=== PATIENT | female | born 1985 | race Caucasian/White ===

== ENCOUNTER 2021-01-08 17:40 | Emergency (ER) | payer MEDICAID | END 2021-01-08 21:08 | disposition left against medical advice (07) | LOC: ER 17:43 | DX: M54.9 Dorsalgia, unspecified (principal); Z53.21 Procedure and treatment not carried out due to patient leaving prior to being seen by health care provider ==

== ENCOUNTER 2023-04-01 15:25 | Inpatient (IN) | payer MEDICAID ==
[~2023-04-01] VITALS: Ht 157.5 cm; Wt 120.0 kg
--- NOTE | 2023-04-01 15:42 | NUR ---
PTS BROTHER LALO STATES HE WILL STAY WITH PT UNTIL SHE CAN BE ROOMED
[2023-04-01 16:27] LABS: BASOPHILS # (AUTO) 0.1 X10'3 (0-0.2); BASOPHILS % (AUTO) 0.7 % (0-1); EOSINOPHILS # (AUTO) 0.1 X10'3 (0-0.9); HEMATOCRIT 38.6 % (35.0-45.0); HEMOGLOBIN 12.7 g/dl (12.0-16.0); LYMPHOCYTES # (AUTO) 2.1 X10'3 (1.1-4.8); LYMPHOCYTES % (AUTO) 21.3 % (21-51); MEAN CORPUSCULAR HEMOGLOBIN 28.6 PG (27.0-31.0); MEAN CORPUSCULAR HGB CONC 32.9 g/dL (33.0-36.5); MEAN CORPUSCULAR VOLUME 87.1 FL (78-98); MEAN PLATELET VOLUME 8.2 FL (7.4-10.4); MONOCYTES # (AUTO) 0.3 X10'3 (0-0.9); MONOCYTES % (AUTO) 3.4 % (2-12); NEUTROPHILS # (AUTO) 7.1 X10'3 (1.8-7.7); NEUTROPHILS % (AUTO) 73.6 % (42-75); PLATELET COUNT 223 X10'3 (140-440); RED BLOOD COUNT 4.43 X10'6 (4.20-5.60); RED CELL DISTRIBUTION WIDTH 14.3 % (11.5-14.5); WHITE BLOOD COUNT 9.7 X10'3 (4.5-11.0)
[2023-04-01 16:33] LABS: BILIRUBIN,URINE NEGATIVE (Neg); CLARITY,URINE SLIGHTLY CLOUDY (Clear); COLOR,URINE YELLOW (Yellow); GLUCOSE, URINE NEGATIVE (Neg); KETONES,URINE NEGATIVE (Neg); LEUKOCYTE ESTERASE ,URINE NEGATIVE (Neg); NITRITES, URINE NEGATIVE (Neg); OCCULT BLOOD,URINE NEGATIVE (Neg); PROTEIN,URINE NEGATIVE (Neg)
[2023-04-01 16:38] LABS: UA COLLECTION TYPE CLN CATCH MIDSTREAM
[2023-04-01 16:39] LABS: MUCUS STRANDS MANY /LPF (Neg); SQUAMOUS EPITHELIAL CELL,UR MANY /LPF (FEW)
[2023-04-01 16:40] LABS: BACTERIA,URINE FEW /HPF (Neg); RBC,URINE 0-2 /HPF (0-2); URINE HCG NEGATIVE (NEG)
[2023-04-01 16:41] LABS: AMORPHOUS URATES 1+
[2023-04-01 16:43] LABS: ALANINE AMINOTRANSFERASE 16 U/L (12-78); ALBUMIN 3.2 G/DL (3.4-5.0); ALBUMIN/GLOBULIN RATIO 0.7 (1.1-1.5); ALKALINE PHOSPHATASE 88 IU/L (46-116); ANION GAP 5 (8-16); ASPARTATE AMINO TRANSFERASE 13 U/L (10-37); BILIRUBIN,TOTAL 0.5 MG/DL (0.1-1.0); BLOOD UREA NITROGEN 12 MG/DL (7-18); BUN/CREATININE RATIO 15.8 (10.0-20.0); CALCIUM 8.8 MG/DL (8.5-10.1); CHLORIDE 104 MMOL/L (99-107); CREATININE 0.76 MG/DL (0.40-0.90); GLUCOSE 90 MG/DL (70-104); POTASSIUM 3.5 MMOL/L (3.5-5.1); SODIUM 138 MMOL/L (135-145); TOTAL CARBON DIOXIDE 28.9 MMOL/L (24-32); TOTAL PROTEIN 7.8 G/DL (6.4-8.2); eCRCL 81 ML/MIN; eGFR 86 ML/MIN
[2023-04-01 16:47] LABS: URINE AMPHETAMINE SCREEN NEGATIVE (Neg); URINE BARBITUATE SCREEN NEGATIVE (Neg); URINE BENZODIAZEPINES SCREEN NEGATIVE (Neg); URINE CANNABINOID SCREEN NEGATIVE (Neg); URINE COCAINE SCREEN NEGATIVE (Neg); URINE METHADONE SCREEN NEGATIVE (Neg); URINE OPIATE SCREEN NEGATIVE (Neg); URINE PHENCYCLIDINE SCREEN NEGATIVE (Neg)
--- NOTE | 2023-04-01 16:50 | NUR ---
Patient admitted to ED overflow at this time. Tearful and able to answer questions appropriately. Able to make needs known. Will continue to monitor. Addendum: 04/01/23 at 1830 by RUDOLPH Joyce MARTIENZ, KODI, PRESTON or LIUDMILA.
[2023-04-01 16:52] LABS: ETHANOL < 10 MG/DL (<10); THYROID STIMULATING HORMONE 2.28 ulU/ml (0.34-4.50)
--- NOTE | 2023-04-01 17:37 | NUR ---
Per Mother [phone]. Patient related located with kids. Crying constantly and depressed. HX Bipolar, ADHD. Has been on Depakote and [place], but no longer. Latuda and does not know dose. Was given something for sleep but made her too sleepy. Patient believes her mother is trying to take away her kids. Mother taking care of patient's 2 children and has Temporary custody. 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
[2023-04-01] MEDS ORDERED: amLODIPine 5mg tablet PO ONE (18:05)
--- NOTE | 2023-04-01 18:42 | NUR ---
Transferred care to Tianna WRIGHT.
--- NOTE | 2023-04-01 22:51 | NUR ---
Pt sleeping. Ambulated independantly to BR.
--- NOTE | 2023-04-02 00:47 | NUR ---
Ambulated independantly to BR back to bed.
--- NOTE | 2023-04-02 05:19 | NUR ---
packet sent to [facility]
--- NOTE | 2023-04-02 06:38 | NUR ---
Pt awake and used restroom. Pt up at nurse's station walking around unit. No s/s of distress.
[2023-04-02] MEDS ORDERED: LEVO50TA8 PO (08:08)
[2023-04-02] MEDS ORDERED: LISI10TA27 PO (08:08)
--- NOTE | 2023-04-02 09:05 | NUR ---
Pt awake and standing next to bed. Pt states she doesn't want to be in bed all day. No s/s of distress.
--- NOTE | 2023-04-02 09:22 | NUR ---
Pt's ex-boyfriend at bedside, brought in medications. Pt and ex-boyfriend talking at bedside calmly.
[2023-04-02] MEDS ORDERED: METO50TA17 PO (09:31)
[2023-04-02] MEDS ORDERED: ACYC-129 PO (09:41)
--- NOTE | 2023-04-02 10:05 | NUR ---
Medication Reconciliation complete
[2023-04-02] MEDS ORDERED: acyclovir 200 MG capsule PO PRN (10:25)
--- NOTE | 2023-04-02 11:01 | NUR ---
Pt's ex-boyfriend still at bedside. Pt and ex-boyfriend talking at bedside calmly. Addendum: 04/02/23 at 1106 by CHERYL Pt up to bathroom. Requested snacks; gave pt crackers, yogurt, juice.
--- NOTE | 2023-04-02 12:58 | NUR ---
Pt sitting in bed, ex-boyfriend at bedside. No s/s of distress.
[2023-04-02 15:19] VITALS: BP 166/107; PULSE 58; RESP 16; TEMP 97.9; O2SAT 97
--- NOTE | 2023-04-02 15:56 | NUR ---
ADMIT NOTE: Patient arrived at 1500 to [facility] via w/c from ER overflow for GD. Per her 5150 patient reports history of mental illness. She stopped her meds due to reported side effects of weight gain. She is unable to provide for food, long term, and clothing.
[2023-04-02 19:17] VITALS: BP 145/89; PULSE 66; RESP 18; TEMP 97.3; O2SAT 98
[2023-04-02] MEDS: metoprolol tartrate 50mg tablet PO SCH (19:59)
--- NOTE | 2023-04-03 02:44 | NUR ---
Nursing progress note: Problem: Patient arrived at 1500 to [facility] via w/c from ER overflow for GD. Per her 5150 patient reports history of mental illness. She stopped her meds due to reported side effects of weight gain. She is unable to provide for food, intermediate, and clothing. Interventions: Increase level of observation: DTS. Patient on fall precaution. Staff will continue to monitor patient behavior. Response: This nurse resumed care for patient at 1830. Upon entering hallway from report patient was observed coming out of dining corado. During 1:1, patient became tearful when talking about her children. She has a 2 year old boy and 7 year old girl, whom she had care for until about 2 weeks ago when she signed all rights to her mother. The mother brings up old things from the past and it makes her angry. She has a history of bipolar and anxiety. She still has a home in [place] but her mom wanted her to come back here so she can see the kids. She states she was prescribed 500 Seroquel but she didnt take it because she cant take it and watch over her children. She says she is in here because she has anger problems, shes not suicidal. She said she may have verbalized it but didnt actually mean it. Patient denies SI, AH/VH. Patient does not want to receive any calls from her mother unless it pertains to her children. Patient also complains of a thyroid problem that is causing her to cough all night which makes it difficult to sleep. Plan: Patient will remain free from self-harm per shift as well as falls. Patient will return to baseline functioning by discharge. Prevent further deterioration during hospitalization.
[2023-04-03 07:33] VITALS: RESP 16
[2023-04-03] MEDS: lisinopril 10 MG tablet PO SCH (07:38)
[2023-04-03] MEDS: metoprolol tartrate 50mg tablet PO SCH ×2 (07:38→20:03)
[2023-04-03] MEDS: levoTHYROXINE 25mcg tablet PO SCH (07:38)
[2023-04-03 07:48] VITALS: BP 117/63; PULSE 65; RESP 16; TEMP 97.9; O2SAT 98
--- NOTE | 2023-04-03 10:28 | NUR ---
PSYCHOSOCIAL ASSESSMENT Met with Pt. today. Pt is a 37-year-old white female on hold for GD after experiencing increase in mental health symptoms after stopping her prescribed medications due to side effects of weight gain. Client reports mood instability and suicidal ideation. Client recently moved back to [place] from [place] about one week ago. She and her children have been staying with her mother. Clients mother reports that client minimizes her symptoms to avoid hospitalization, but client constantly cries and is depressed. A/V/H; very emotional, wants to sleep a lot, doesn't want to do anything, will isolate in her home because she doesn't feel safe outside of the home. She is easily angered, depression, A/H sometimes, "I talk in my sleep and kick my legs", anxiety, paranoia and mood swings. Client reported she is not currently med compliant. Client reports she experienced side effects of weight gain (Latuda) and stopped taking her medications prior to moving to the [place] area. Client stated she was on Seroquel but had been taken off due to it making her too sleepy to take care of her children. She was previously on Depakote and [place]. Client reported in 2017 that she had two miscarriages and has been off meds ever since. Client recently moved from [place] to [place] with her two children to live with her mother .She has a hx w/[facility] and is trying to get reinstated with them. Client previously had an ILS worker in 2017.She has a hx of poor decision-making skills as noted. Her hospital packet states that client recently lost her kids to CPS. Clients mother reported the children are safe and staying with her until client stabilizes and gets back on meds. Clients mother has temporary custody of her two children. One has autism and the other has a KBG disorder. Client reports that she will do puzzles and color when she starts to feel anxious or emotional and this will help calm her down. MSE: Pt's demeanor was calm. She was dressed in scrubs, her hygiene appeared WNL. Her mood appeared slightly anxious with a restricted affect. Her thought process and thought content were WNL. Yvonne Baron, [facility]
--- NOTE | 2023-04-03 13:16 | NUR ---
Nursing progress note: Problem: Patient arrived at 1500 to [facility] via w/c from ER overflow for GD. Per her 5150 patient reports history of mental illness. She stopped her meds due to reported side effects of weight gain. She is unable to provide for food, detention, and clothing. Interventions: Increase level of observation: DTS. Patient on fall precaution. Staff will continue to monitor patient behavior. Response: Upon arrival to shift noted patient to be sleeping. Patient up early this am and walking halls. Reports feeling rested. Asked questions whether calli get the rest of her medications. RN inquired which ones. Patient asking about getting low dose Seroquel 25 mg, her anxiety med which she doesnt know the name of, and her topical acne cream. Reports that shell ask her ex-bf to get the names of those today. Told the patient to discuss with MD today. Pleasant, calm and cooperative. Noted to be wearing clean green scrubs, well-groomed and open to conversation. Denies SI, HI, AH, or VH. No delusions made. She is here to get her medications sorted out. Compliant with AM meds. No PRNs given. Will continue to monitor. Plan: Patient will remain free from self-harm per shift as well as falls. Patient will return to baseline functioning by discharge. Prevent further deterioration during hospitalization.
--- NOTE | 2023-04-03 13:23 | NUR ---
Transferred care to Brian WRIGHT. Reported off.
--- NOTE | 2023-04-03 16:50 | NUR ---
[facility]
[2023-04-03 19:45] VITALS: BP 147/85; PULSE 68; RESP 18; TEMP 97.5; O2SAT 98
--- NOTE | 2023-04-04 02:52 | NUR ---
Nursing progress note: Problem: Patient arrived at 1500 to [facility] via w/c from ER overflow for GD. Per her 5150 patient reports history of mental illness. She stopped her meds due to reported side effects of weight gain. She is unable to provide for food, retirement, and clothing. Interventions: Increase level of observation: DTS. Patient on fall precaution. Staff will continue to monitor patient behavior. Response: this nurse resumed care for patient at 1830. Upon start of shift patient seen wandering corado and using phone. During 1:1, patient stated today was better than the day before. She denies all symptoms including pain. Patient says the Seroquel she received today had a good effect. Patient claims to attend dining room every meal and snack. Patient also plans to attend snack time. Patient was happy to say she got talk to her babies today on the phone. Patient had Boyfriend or ex-boyfriend bring up acne face wash and topical cream. The nurse at the time sent the wash and topical cream to pharmacy but it didnt make it back because it was and they could not locate a prescription. Patient currently in bed with eyes closed. Plan: Patient will remain free from self-harm per shift as well as falls. Patient will return to baseline functioning by discharge. Prevent further deterioration during hospitalization.
[2023-04-04 07:50] VITALS: BP 139/85; PULSE 64; RESP 20; TEMP 98.4; O2SAT 98
[2023-04-04] MEDS: levoTHYROXINE 25mcg tablet PO SCH (08:48)
[2023-04-04] MEDS: metoprolol tartrate 50mg tablet PO SCH ×2 (08:49→20:00)
[2023-04-04] MEDS: lisinopril 10 MG tablet PO SCH (08:49)
--- NOTE | 2023-04-04 14:52 | NUR ---
CASE MANAGEMENT This Diesel Locomotive Crane Operator spoke to Pt. about where she would like to go upon discharge from [facility] and if she would be interested in this Diesel Locomotive Crane Operator putting in a [facility] referral. Pt reported that she would like to and stay at the [facility] as she is comfortable there and her ex-boyfriend is there. She did not want to put a referral into [facility] at this time. Pt is interested in going to [facility] Access Intake when she leaves [facility] for MH follow up services. Yvonne Baron, [employer]
--- NOTE | 2023-04-04 16:21 | NUR ---
Nursing Progress Note: Problem: Patient arrived at 1500 to [facility] via w/c from ER overflow for GD. Per her 5150 patient reports history of mental illness. She stopped her meds due to reported side effects of weight gain. She is unable to provide for food, penitentiary, and clothing. Interventions: Provided 1:1 assessment with therapeutic communication and active listening. Medication administration/education/monitoring. Provided safe environment. Encouraged pt to participate in group activities. Monitored q 15 minute safety checks. Response: Pt cooperative with medications and morning assessment. [facility] She talked about her two children. She explained her sons father has visitation and she coordinates those visit. She shared [facility]. Pt appears to have swelling of the epigastric region. Positive BS all four quadrants. Denies pain with touch to the area. Plan: Patient will remain free from self-harm per shift as well as falls. Patient will return to baseline functioning by discharge. Prevent further deterioration during hospitalization.
[2023-04-04] MEDS ORDERED: busPIRone 5mg tablet PO ONE (16:40)
[2023-04-04 19:00] VITALS: RESP 18; O2SAT 100
[2023-04-04 20:00] VITALS: BP 133/87; PULSE 66; RESP 18; TEMP 97.5; O2SAT 100
[2023-04-04] MEDS: busPIRone 5mg tablet PO SCH (20:01)
[2023-04-04] MEDS: QUEtiapine 25mg tablet PO SCH (20:01)
--- NOTE | 2023-04-05 02:51 | NUR ---
Nursing Progress Note: Bárbara Problem: Patient arrived at 1500 to [facility] via w/c from ER overflow for GD. Per her 5150 patient reports history of mental illness. She stopped her meds due to reported side effects of weight gain. She is unable to provide for food, custodial, and clothing. Interventions: Provided 1:1 assessment with therapeutic communication and active listening. Medication administration/education/monitoring. Provided safe environment. Encouraged pt to participate in group activities. Monitored q 15 minute safety checks. Response: This nurse resumed care for patient at 1830. During 1:1, patient was in room and was very welcoming. Patient seems to enjoy roommate. Patient seemed happier and smiling today. Patient shared how she was approved for an apartment but unfortunately missed the call. Patient hopes that it will still be available on Saturday if she gets out then she is going straight there. Patient got to talk to children on phone today, made her happy. Patient admitted to experiencing some anxiety when a peer got loud in the hallway. She said he scared her so she hurried back to her room. Patient stated she was then administered Buspirone for the anxiety. Patient denied all symptoms including pain. Patient complains of stomach sounds, but no pain. Patient admits to having normal bowel movements at least every day. Soft and formed. Plan: Patient will remain free from self-harm per shift as well as falls. Patient will return to baseline functioning by discharge. Prevent further deterioration during hospitalization.
[2023-04-05 07:00] VITALS: RESP 18; O2SAT 98
[2023-04-05 08:00] VITALS: BP 98/50; PULSE 68; RESP 16; TEMP 98.1; O2SAT 98
[2023-04-05] MEDS: metoprolol tartrate 50mg tablet PO SCH ×2 (08:00→19:44)
[2023-04-05] MEDS: lisinopril 10 MG tablet PO SCH (08:00)
[2023-04-05] MEDS: busPIRone 5mg tablet PO SCH ×3 (08:17→20:42)
[2023-04-05] MEDS: levoTHYROXINE 25mcg tablet PO SCH (08:17)
[2023-04-05 12:04] VITALS: BP 139/89
--- NOTE | 2023-04-05 15:51 | NUR ---
Nursing Progress Note: Problem: Patient admitted from ER overflow for GD. Per her 5150 patient reports history of mental illness. She stopped her medications due to reported side effects of weight gain. She is unable to provide for food, senior living, and clothing. Interventions: Provided 1:1 assessment with therapeutic communication and active listening. Medication administration/education/monitoring. Provided safe environment. Encouraged pt to participate in group activities. Monitored q 15 minute safety checks. Response: 1:1 done at bedside and medications administered with no issues. Pt denies all MH symptoms. Pt. attended meals in the dining room as well as snack. Pt seen napping early this shift. This nurse spoke with the pt. mother who states the pt. has been having frequent mood fluctuations and becomes easily angered. Pt has not had labile moods or seen angry this shift. Pt is currently homeless and her mother is taking care of her children. Plan: Patient will remain free from self-harm per shift as well as falls. Patient will return to baseline functioning by discharge. Prevent further deterioration during hospitalization.
[2023-04-05 19:00] VITALS: BP 134/87; PULSE 77; RESP 14; TEMP 97.8; O2SAT 98
[2023-04-05] MEDS: QUEtiapine 25mg tablet PO SCH (20:42)
--- NOTE | 2023-04-06 05:12 | NUR ---
Nursing Progress Note: Problem: Patient arrived at 1500 to [facility] via w/c from ER overflow for GD. Per her 5150 patient reports history of mental illness. She stopped her meds due to reported side effects of weight gain. She is unable to provide for food, long-term, and clothing. Interventions: Provided 1:1 assessment with therapeutic communication and active listening. Medication administration/education/monitoring. Provided safe environment. Encouraged pt to participate in group activities. Monitored q 15 minute safety checks. Response: Pt heard talking on the phone in the hallway at change of shift stating, you wont take my kids from me, you think I dont know what youre doing. Pt then approached nurses station noticeably upset demanding staff not to speak with her mother, earlier this shift pt. had said it was ok for staff to speak with her mother. Pt. then returned to her room with this nurse and was requesting to leave and inquiring about her 5250 hearing. Pt eventually calmed down and has had no further incidents. Pt continues to deny all MH symptoms. 1:1 done at bedside and medications administered with no issues. Pt slept with no issues. Plan: Patient will remain free from self-harm per shift as well as falls. Patient will return to baseline functioning by discharge. Prevent further deterioration during hospitalization.
[2023-04-06 07:00] VITALS: RESP 14; O2SAT 97
[2023-04-06 08:00] VITALS: BP 117/69; PULSE 65; RESP 14; TEMP 98.8; O2SAT 97
[2023-04-06] MEDS: levoTHYROXINE 25mcg tablet PO SCH (08:24)
[2023-04-06] MEDS: busPIRone 5mg tablet PO SCH (08:24)
[2023-04-06] MEDS: metoprolol tartrate 50mg tablet PO SCH (08:25)
[2023-04-06 08:26] VITALS: BP_SYST 117; PULSE 65
[2023-04-06] MEDS: lisinopril 10 MG tablet PO SCH (08:26)
[2023-04-06] MEDS ORDERED: LISI10TA27 PO (09:27)
[2023-04-06] MEDS ORDERED: METO50TA16 PO (09:27)
[2023-04-06] MEDS ORDERED: ZOV200C PO (09:27)
[2023-04-06] MEDS ORDERED: LEVO50TA8 PO (09:27)
[2023-04-06] MEDS ORDERED: QUET25TA36 PO (09:27)
[2023-04-06] MEDS ORDERED: BUSP5TAB26 PO (09:27)
--- NOTE | 2023-04-06 12:46 | NUR ---
Nursing Discharge Note Pt discharged from [facility] at 1050 to family and to return home. Pt was in pleasant mood and in no acute emotional or physical distress. Pt denies SI and has been improving since admission. Pts belongings were inventoried and returned to her, along with medications she brought from home. Pt understood f/u and D/C instructions and did not want nicotine replacement.
== END 2023-04-06 10:54 | disposition home or self-care (01) | DRG 751 ==
LOC: ER 15:25 → ED HOLD 04-02 14:00 → ADULT MH 04-02 15:11
PROVIDERS: ADMIT Psychiatry & Neurology Psychiatry; ATTEND Psychiatry & Neurology Psychiatry
DX: F33.1 Major depressive disorder, recurrent, moderate (principal); R45.851 Suicidal ideations; F79 Unspecified intellectual disabilities; E03.9 Hypothyroidism, unspecified; E66.01 Morbid (severe) obesity due to excess calories; I10 Essential (primary) hypertension; F20.9 Schizophrenia, unspecified; B00.9 Herpesviral infection, unspecified; Z20.822 Contact with and (suspected) exposure to COVID-19; F41.1 Generalized anxiety disorder; Z59.01 Sheltered homelessness; Z79.899 Other long term (current) drug therapy; Z81.8 Family history of other mental and behavioral disorders; Z68.41 Body mass index [BMI] 40.0-44.9, adult; Z85.41 Personal history of malignant neoplasm of cervix uteri; Z85.42 Personal history of malignant neoplasm of other parts of uterus; Z56.0 Unemployment, unspecified
CPT/HCPCS: 36415; 80053; 80305; 80320; 81001; 81025; 84443; 85025; 87081; 87811; 99285

== ENCOUNTER 2023-08-26 11:59 | Emergency (ER) | payer MEDICAID ==
[~2023-08-26] VITALS: Ht 162.6 cm; Wt 125.3 kg
[~2023-08-26 11:59] MED LIST: BUSP5TAB26 PO; LEVO50TA8 PO; LISI10TA27 PO; METO50TA16 PO; QUET25TA36 PO; ZOV200C PO
[2023-08-26 12:07] VITALS: BP 160/82; PULSE 89; RESP 18; TEMP 97.2; O2SAT 98
== END 2023-08-26 13:37 | disposition home or self-care (01) ==
LOC: ER 12:00
DX: Z13.6 Encounter for screening for cardiovascular disorders (principal); I10 Essential (primary) hypertension; F31.9 Bipolar disorder, unspecified; Z79.899 Other long term (current) drug therapy
CPT/HCPCS: 93005; 99283

== ENCOUNTER 2023-11-05 09:16 | Outpatient (CLI) | payer MEDICAID ==
[~2023-11-05] VITALS: Ht 165.1 cm; Wt 127.0 kg
[~2023-11-05 09:16] MED LIST changes: +ceFAZolin/dextrose, iso. 1 GM/50ml bag IV ONE
[2023-11-05] MEDS ORDERED: LISI20TA28 PO (10:11)
[2023-11-05] MEDS ORDERED: ACYC200C30 (10:11)
[2023-11-05] MEDS ORDERED: METO-384 PO (10:11)
[2023-11-05] MEDS ORDERED: BUSP5TAB3 PO (10:11)
[2023-11-05] MEDS ORDERED: BUSP15TA3 PO (10:11)
[2023-11-05] MEDS ORDERED: QUET25TA PO (10:11)
[2023-11-05] MEDS ORDERED: LEVO50CA4 PO (10:11)
[2023-11-05] MEDS ORDERED: AMOX500C4 PO (10:11)
[2023-11-05 10:21] LABS: EOSINOPHILS # (AUTO) 0.1 X10'3 (0-0.9); MEAN CORPUSCULAR VOLUME 88.2 FL (78-98); PRE OP HEMOGLOBIN 13.5 g/dL (12.0-16.0); RED CELL DISTRIBUTION WIDTH 13.6 % (11.5-14.5)
[2023-11-05 10:23] LABS: BASOPHILS # (AUTO) 0.1 X10'3 (0-0.2); BASOPHILS % (AUTO) 0.5 % (0-1); EOSINOPHILS % (AUTO) 0.6 % (0-6); LYMPHOCYTES # (AUTO) 2.6 X10'3 (1.1-4.8); LYMPHOCYTES % (AUTO) 24.8 % (21-51); MEAN CORPUSCULAR HEMOGLOBIN 29.1 PG (27.0-31.0); MEAN PLATELET VOLUME 8.3 FL (7.4-10.4); MONOCYTES # (AUTO) 0.4 X10'3 (0-0.9); MONOCYTES % (AUTO) 3.9 % (2-12); NEUTROPHILS # (AUTO) 7.4 X10'3 (1.8-7.7); NEUTROPHILS % (AUTO) 70.2 % (42-75); PRE OP HEMATOCRIT 40.9 % (35.0-45.0); PRE OP PLATELET COUNT 228 X10'3 (140-440); PRE OP WHITE BLOOD COUNT 10.5 10'3 (4.8-10.8); RED BLOOD COUNT 4.64 X10'6 (4.20-5.60)
[2023-11-05 10:25] LABS: URINE HCG NEGATIVE (NEG)
[2023-11-05 10:32] LABS: ALBUMIN 3.4 G/DL (3.4-5.0); ALBUMIN/GLOBULIN RATIO 0.7 (1.1-1.5); ALKALINE PHOSPHATASE 73 IU/L (46-116); BLOOD UREA NITROGEN 12 MG/DL (7-18); BUN/CREATININE RATIO 17.4 (10.0-20.0); CALCIUM 8.4 MG/DL (8.5-10.1); CHLORIDE 105 MMOL/L (99-107); CREATININE 0.69 MG/DL (0.40-0.90); PRE OP ALT 18 U/L (30-65); PRE OP ANION GAP 7 (8-16); PRE OP AST 14 U/L (10-37); PRE OP BILIRUB, TOTAL 0.6 MG/DL (0.0-1.0); PRE OP GLUCOSE 92 MG/DL (70-104); PRE OP SODIUM 138 MMOL/L (135-145); TOTAL PROTEIN 8.2 G/DL (6.4-8.2); eGFR > 90 ML/MIN
[2023-11-12] MEDS ORDERED: ceFAZolin inj. 3,000 MG in normal saline 100ml IV soln 100 ML IV ONE (05:30)
[2023-11-12] MEDS ORDERED: famotidine 20mg tablet PO ONE (05:30)
[2023-11-12] MEDS ORDERED: DOCUMENT DATE & TIME OF BETA-BLOCKER PO ONE (05:30)
[2023-11-12] MEDS ORDERED: ringers solution, lacted 1,000 ML IV SCH (05:30)
[2023-11-12] MEDS ORDERED: LIDOcaine 1% (10mg/ml)w/preservative inj. 20ml MDV ONE (10:01)
[2023-11-12] MEDS ORDERED: LIDOcaine 1% 30ml preserv. free vial ONE (10:02)
[2023-11-12] MEDS ORDERED: BUPIVAcaine 2.5mg/ml inj 50ml vial (contains preservative) ONE ×2 (10:04→10:12)
[2023-11-12] MEDS ORDERED: BUPIVACAINE liposomal/PF 13.3 MG/ML vial IM ONE (10:12)
== END 2023-11-05 23:59 | disposition home or self-care (01) ==
LOC: LAB 09:16 → EDSTATUS 11-12 10:15
PROVIDERS: ATTEND Surgery
DX: Z01.812 Encounter for preprocedural laboratory examination (principal); K43.9 Ventral hernia without obstruction or gangrene
CPT/HCPCS: 36415; 80053; 81025; 85025; J0690; J3490; J7120; C9290